=== PATIENT | female | born 1955 | race Caucasian/White ===

== ENCOUNTER → 2016-07-21 | Outpatient (CLI) | payer OTHER ==
--- NOTE | 2016-07-21 10:42 | MA ---
Screening Digital Mammogram With iCAD Analysis Clinical Indications: Routine screening. Technique: Standard cephalocaudal and mediolateral oblique projections were obtained. This examinatio n was processed by the iCAD computer aided detection system. Comparison: December 2014, September 2012, May 2011, January 2010, October 2008, September 2007. Breast density: Type C; Heterogeneously dense. Findings: CAD was reviewed. No masses, suspicious calcifications or other signs of malignancy are id entified. There has been no significant change in the appearance of either breast. Impression: Negative mammogram. BI-RADS 1. Recommendation: Annual screening, as long as physical examination is negative, in this patient with h eterogeneously dense breasts. [facility] will send a result letter to the patient. Dense breast parenchyma diminishes mammographic sensitivity. Negative mammography should not preclude additional workup of a clinically suspicious finding. The patient's information is entered into a reminder system with a target due date for her next mammo gram.
== END ==
LOC: CIMAGING 08:17
DX: Z12.31 Encounter for screening mammogram for malignant neoplasm of breast (principal)
CPT/HCPCS: G0202

== ENCOUNTER → 2017-08-25 | Outpatient (CLI) | payer OTHER | LOC: CIMAGING 07:43 | PROVIDERS: ATTEND Obstetrics & Gynecology Gynecology | DX: Z12.31 Encounter for screening mammogram for malignant neoplasm of breast (principal) ==

== ENCOUNTER → 2018-04-12 | Outpatient (CLI) | payer OTHER | LOC: CIMAGING 09:48 | PROVIDERS: ATTEND Internal Medicine | DX: R06.02 Shortness of breath (principal); R05 Cough | CPT/HCPCS: 71046-PO ==

== ENCOUNTER → 2018-09-27 | Outpatient (CLI) | payer OTHER | LOC: CLAB 17:56 | PROVIDERS: ATTEND Physical Medicine & Rehabilitation | DX: M79.644 Pain in right finger(s) (principal); M19.041 Primary osteoarthritis, right hand | CPT/HCPCS: 73130-PO ==